=== PATIENT | female | born 1995 | race Caucasian/White ===

== ENCOUNTER 2023-12-29 11:02 | Outpatient (AMB) | payer OTHER, SELFPAY ==
--- NOTE | 2023-12-29 12:30 | MHC.OFFWIV ---
Intake Vital Signs 12/29/23 12:35 Height 5 ft 3 in Weight 366 lb BMI 64.8 BP 124/88 Blood Pressure Location Lt radial Position Sitting Pulse 100 Pulse Source Pulse Oximeter Temp 98.1 F Temp Source Oral Pulse Oximetry (%) 97 Oxygen Delivery Method Room Air Intake Visit Reasons: possible strep [phone] Intake Note: pt c/o sore throat. Started last Friday. Patient Tobacco Use Status: Never used Tobacco Allergies No Known Allergies Allergy (Verified 12/29/23 12:40) Do you need a note to return to daycare/school/sports/work: No HPI HPI Comments History of Present Illness Details Patient presents to the walk-in today with complaints of sore throat for last 5 days Recently traveled with partner, partner tested positive for strep Pain worse with swallowing. Tolerating p.o., denies nausea, vomiting Denies headaches, fevers, chest pain, syncope, dizziness, weakness or difficulty managing secretions PFSH Social History Patient Tobacco Use Status: Never used Tobacco Review of Systems Const All systems reviewed & are unremarkable except as noted in HPI and below Physical Exam Vital Signs: Last Vital Signs Temp 98.1 F 12/29/23 12:35 Pulse 100 12/29/23 12:35 BP 124/88 12/29/23 12:35 Pulse Ox 97 12/29/23 12:35 Oxygen Delivery Method Room Air 12/29/23 12:35 BMI result Body Mass Index 64.8 General: awake, alert, oriented. Answers questions appropriately. Fully engaged in examination. Skin: warm, dry, intact HEENT: TMs intact bilaterally, no redness. Posterior pharynx erythematous with white exudates bilaterally. Moist oral mucosa. Sclera without icterus or injection. Cardiac: External chest normal in appearance. Respiratory: LSCTAB. Abdomen: without gross distension. Neurological: Oriented to person, place, time and situation. Thought process intact. Psychiatric: Appropriate mood and affect. Good judgment and insight. Results AMB Rapid Strep AMB Rapid Strep Positive Last Edit by Anup Foote CMA on 12/29/23 12:47 Results Reviewed Results Reviewed: Rapid strep positive Assessment & Plan Assessment & Plan (1) Strep pharyngitis: Code(s): J02.0 - Streptococcal pharyngitis Plan Patient presented to the walk-in today with complaints of sore throat Rapid strep positive Amoxicillin 500 mg twice daily for 10 days Rest, drink plenty of fluids. Tylenol or Motrin as needed Discussed preventative measures including no sharing of drinks, utensils or kissing. Dispose of tooth brush every 3 days and at completion of the antibiotics. All questions and concerns were answered, patient agrees with plan Follow with primary care or return to the clinic for any new or worsening symptoms Orders: Orders AMB Rapid Strep Screen Today Z13.9 - Encounter for screening, unspecified Medications: New amoxicillin 500 mg PO TID 10 days 30 caps 0RF Coding Level of Care Code Est Pt Level 3 (74809) Diagnoses Strep pharyngitis J02.0
[2023-12-29 12:35] VITALS: BP 124/88; PULSE 100; TEMP 36.7; O2SAT 97; BMI 64.8
== END 2023-12-29 13:17 | disposition home or self-care (01) ==
PROVIDERS: Visit Provider Registered Nurse Emergency
DX: J02.0 Streptococcal pharyngitis (principal); Z13.9 Encounter for screening, unspecified
CPT/HCPCS: 87880; 99213

== ENCOUNTER 2024-08-18 09:18 | Emergency (ER) | payer OTHER, SELFPAY ==
[2024-08-18 09:22] VITALS: BP 156/95; PULSE 106; RESP 20; TEMP 36.6; O2SAT 96; BMI 66.3
--- NOTE | 2024-08-18 10:51 | ED.GENADULT ---
HPI - General Adult General Chief complaint: General Medical Stated complaint: Shift In Control- L Arm Time Seen by Provider: 08/18/24 10:50 History of Present Illness ED Provider: Jesi STEVENSON narrative: The patient is a 29-year-old female who had a Nexplanon device implanted in her left upper arm 2 days ago on Friday. [facility]. The patient says that everything felt fine yesterday but that last night she developed pain in her left arm at the site of the device implantation. The pain is worse with certain movements of the arm. She can find a comfortable position. She thinks that the device must have shifted position so that it is some how pushing on the incision site. She came to the emergency room to address this problem. Related Data Home Medications ?Medication ?Instructions ?Recorded ?Confirmed buspirone 7.5 mg tablet 7.5 mg PO BID 12/29/23 cholecalciferol (vitamin D3) 50 50 mcg PO DAILY 12/29/23 mcg (2,000 unit) capsule escitalopram oxalate 20 mg tablet 20 mg PO DAILY 12/29/23 Previous Rx's ?Medication ?Instructions ?Recorded amoxicillin 500 mg capsule 500 mg PO TID 10 days #30 caps 12/29/23 Allergies Allergy/AdvReac Type Severity Reaction Status Date / Time No Known Allergies Allergy Verified 08/18/24 09:25 Review of Systems Review of Systems: Yes all other systems are reviewed and are negative FOR[facility]LY [facility] Social History Social History Patient Tobacco Use Status: Never used Tobacco Advance Directives: No Advance Directives Information Provided: Yes Physical Exam ED Vital Signs: Vital Signs - 24 hr 08/18/24 09:22 08/18/24 12:32 Temperature 97.8 F 97.8 F Pulse Rate 106 H 106 H Respiratory Rate 20 20 Blood Pressure 156/95 H 156/95 H Pulse Oximetry 96 96 Oxygen Delivery Method Room Air Room Air BMI result Body Mass Index 66.3 Const Other: The patient is awake and alert. She had her left arm held over her head. This was a position of comfort. she does not appear in acute distress or seem acutely ill HENMT Other: Face is symmetrical, mucous membranes moist. Eyes General: appearance normal, both eyes and all related structures Neck Neck: Yes normal visual inspection and Yes full ROM Resp Effort & Inspection: normal respiratory effort Auscultation: clear to auscultation bilaterally Cardio Rate: regular rate Rhythm: regular rhythm Heart sounds: S1 normal heart sound present and S2 normal heart sound present Skin Other: The patient has Steri-Strips on the medial aspect of the left upper arm about [address] between the axilla and the elbow. I can palpate a device just proximal to the center of the confluence the Steri-Strips. Neuro Other: The patient is awake and alert with a normal mental status. She has normal strength and sensation in the left hand. Extrem Other: The patient has her left arm lifted above her head. This is her position of comfort. When she brings the arm down she seems to have pain at the site of the device in the left upper arm. I can palpate the device near the Steri-Strips on the arm. Medications Administered Discontinued Medications Generic Name Dose Route Start Last Admin Trade Name Freq PRN Reason Stop Dose Admin Lidocaine HCl 2 ml 08/18/24 11:38 08/18/24 11:43 Lidocaine Hcl 1 % Mpf 2 Ml Vial INFILTRATI 08/18/24 11:39 2 ml ONCE ONE Administration Procedures Foreign Body Removal Time Out Performed: yes Site: left and upper extremity (Left upper arm) Description of foreign body: other (Nexplanon device) Sedation/Analgesia: other (2 mL 1% plain lidocaine) Technique: removal with forceps and incision made to facilitate removal Confirmed by:: direct visualization Complications: none Medical Decision Making Medical Decision Making MDM Narrative: The patient is here with the pain after insertion of a new Nexplanon [facility] ago [facility] [place]. The pain started last night. The pain is very positional. I was able to contact the provider, CORA Lima, who inserted the device. She advised me that the patient could try ibuprofen and acetaminophen and [facility] or, if the patient preferred, I could remove the device. The patient preferred to remove the device. I therefore removed the Steri-Strips. I prepped the skin with Betadine. I injected 2 mL of 1% plain lidocaine in the region of the distal portion of the palpable device. I made a transverse incision with a 11. Blade. I was then able to introduce Elayne forceps and grasped the Nexplanon device and removed it intact. After removal of the device I applied some benzoin on the sides of the wound and then applied 3 Steri-Strips. The patient tolerated the procedure well. There were no apparent complications. The patient will be discharged with instructions to return if any wound infection or other complication seems to develop. Otherwise she was advised to follow up with [facility] women services to discuss possible control options or to [facility]. Discharge Plan Discharge Clinical Impression: Nexplanon removal Patient Disposition: Home, Self-Care Additional Instructions: The Steri-Strips should fall often several days. The Steri-Strips may get wet in the shower. You may pat them dry but do not rub them dry. If they start to feel you may cut the peeling ends. Please contact women services office to discuss alternative forms of control or [facility] with [facility]. Return to the emergency room if any problems seemed develop at the wound site. Prescriptions: No Action buspirone 7.5 mg tablet 7.5 mg PO BID escitalopram oxalate 20 mg tablet 20 mg PO DAILY cholecalciferol (vitamin D3) 50 mcg (2,000 unit) capsule 50 mcg PO DAILY amoxicillin 500 mg capsule 500 mg PO TID 10 Days Qty: 30 0RF Referrals: [facility] [Provider Group] (Nexplanon removal) Interventions: ED Discharge Assessment Last Done: 08/18/24 12:32 Discharge Date/Time: 08/18/24 12:33 Print Language: Malay
[2024-08-18] MEDS: Lidocaine HCl 1 % MPF 2 ML VIAL INFILTRATI (11:43)
--- NOTE | 2024-08-18 12:01 | PC.NURSE ---
cleaned and dressed steri strips under left upper arm site.
[2024-08-18 12:32] VITALS: BP 156/95; PULSE 106; RESP 20; TEMP 36.6; O2SAT 96
== END 2024-08-18 12:33 | disposition home or self-care (01) ==
PROVIDERS: Emergency Provider Emergency Medicine
DX: M79.602 Pain in left arm (principal); Z30.46 Encounter for surveillance of implantable subdermal contraceptive; Z79.899 Other long term (current) drug therapy
CPT/HCPCS: 10120; 24200; 24201; 99282; 99284; J2003